=== PATIENT | male | born 1965 | race Caucasian/White ===

== ENCOUNTER 2019-11-22 12:17 | Emergency (ER) | payer BC ==
[2019-11-22 12:37] VITALS: BP 152/80; PULSE 88
--- NOTE | 2019-11-22 12:46 | EDM.PDOC ---
ED HPI GENERAL MEDICAL PROBLEM - General Chief Complaint: Lower Extremity Injury/Pain Stated Complaint: PAIN IN RT LEG Time Seen by Provider: 11/22/19 12:21 - History of Present Illness INITIAL COMMENTS - FREE TEXT/NARRATIVE: History of present illness: [] The patient has suffered with irritation in his legs for a month. 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 It is gradually gotten worse. The patient now has pain where he has excoriation along the lower part of the legs and ankles. The patient is not diabetic does not smoke and has no systemic signs of illness. The patient has persistent nasal congestion despite [id number] remedies after recent sinus x-rays as well. He was told he had no significant acute sinusitis. He has no fever. Review of systems: See above otherwise as per history of present illness and below otherwise all systems reviewed and negative. Past medical history: As per history of present illness and as reviewed below otherwise noncontributory. Surgical history: As per history of present illness and as reviewed below otherwise noncontributory. Social history: Patient does not smoke. No reported history of drug or alcohol abuse. Family history: As per history of present illness and as reviewed below otherwise noncontributory. Physical exam: Musculoskeletal there is a little bit of tenderness in the lower legs and ankles. Skin patient has excoriation and superficial layer erythema and eschar in the medial lower legs and ankles. Some crusting. HEENT: Atraumatic, normocephalic, pupils reactive, negative for conjunctival pallor or scleral icterus, mucous membranes moist, throat clear, neck supple, nontender, trachea midline. Lungs: Clear to auscultation, breath sounds equal bilaterally, chest nontender. Heart: S1S2, regular, negative for clicks, rubs, or JVD. Abdomen: Soft, nondistended, nontender. Negative for masses or hepatosplenomegaly. Negative for costovertebral tenderness. Pelvis: Stable nontender. Genitourinary: Deferred. Rectal: Deferred. Extremities: Atraumatic, negative for cords or calf pain. Neurovascular unremarkable. Neuro: Awake, alert, oriented. Cranial nerves II through XII unremarkable. Cerebellum unremarkable. Motor and sensory unremarkable throughout. Exam nonfocal. Diagnostics: [] Therapeutics: [] Impression: [] Plan: [] Definitive disposition and diagnosis as appropriate pending reevaluation and review of above. Bilateral Lower Leg Pain Score (Numeric/FACES): 5 - Related Data Allergies Allergy/AdvReac Type Severity Reaction Status Date / Time No Known Allergies Allergy Verified 11/22/19 12:29 Home Meds: Home Meds Fluticasone Propionate [Flonase] 16 gm NS BID #1 bottle 11/22/19 [Rx] Ketoconazole [Nizoral 2% Crm] 1 applic TOP BID #1 tube 11/22/19 [Rx] cephALEXin [Cephalexin] 500 mg PO BID #20 capsule 11/22/19 [Rx] Past Medical History HEENT History: Reports: None Cardiovascular History: Reports: None Respiratory History: Reports: None Gastrointestinal History: Reports: None Genitourinary History: Reports: None Musculoskeletal History: Reports: None Neurological History: Reports: None Psychiatric History: Reports: None Endocrine/Metabolic History: Reports: None Hematologic History: Reports: None Immunologic History: Reports: None Oncologic (Cancer) History: Reports: None Dermatologic History: Reports: None - Infectious Disease History Infectious Disease History: Reports: None - Past Surgical History Head Surgeries/Procedures: Reports: None GI Surgical History: Reports: Appendectomy Social & Family History - Family History Family Medical History: Noncontributory - Tobacco Use Smoking Status *Q: Never Smoker Second Hand Smoke Exposure: No - Caffeine Use Caffeine Use: Reports: Coffee - Recreational Drug Use Recreational Drug Use: No Review of Systems - Review of Systems Review Of Systems: See Below ED EXAM, GENERAL - Physical Exam Exam: See Below Course - Vital Signs Last Recorded V/S: Last Vital Signs Temp 97.3 F 11/22/19 12:29 Pulse 88 11/22/19 12:29 Resp 18 11/22/19 12:29 BP 152/80 H 11/22/19 12:29 Pulse Ox 96 11/22/19 12:29 Departure - Departure Time of Disposition: 12:47 Disposition: Home, Self-Care 01 Condition: Good Clinical Impression: Cellulitis - Discharge Information Prescriptions: cephALEXin [Cephalexin] 500 mg PO BID #20 capsule Fluticasone Propionate [Flonase] 16 gm NS BID #1 bottle Ketoconazole [Nizoral 2% Crm] 1 applic TOP BID #1 tube Referrals: Wes Hernandez DPM [Physician] - PCP,None [Primary Care Provider] - Forms: ED Department Discharge Additional Instructions: Keep the boots and socks off for 2 days until the infection starts to clear. If you do not get better at all then you need to see podiatry or primary care and follow-up. The following information is given to patients seen in the emergency department who are being discharged to home. This information is to outline your options for follow-up care. We provide all patients seen in our emergency department with a follow-up referral. The need for follow-up, as well as the timing and circumstances, are variable depending upon the specifics of your emergency department visit. If you don't have a primary care physician on staff, we will provide you with a referral. We always advise you to contact your personal physician following an emergency department visit to inform them of the circumstance of the visit and for follow-up with them and/or the need for any referrals to a consulting specialist. The emergency department will also refer you to a specialist when appropriate. This referral assures that you have the opportunity for follow-up care with a specialist. All of these measure are taken in an effort to provide you with optimal care, which includes your follow-up. Under all circumstances we always encourage you to contact your private physician who remains a resource for coordinating your care. When calling for follow-up care, please make the office aware that this follow-up is from your recent emergency room visit. If for any reason you are refused follow-up, please contact the [facility] Department at and asked to speak to the emergency department charge nurse. Sepsis Event Note - Evaluation Sepsis Screening Result: No Definite Risk - Focused Exam Vital Signs: Vital Signs Temp Pulse Resp BP Pulse Ox 11/22/19 12:29 97.3 F 88 18 152/80 H 96 Date Exam was Performed: 11/22/19 Time Exam was Performed: 12:41 - Assessment/Plan Assessment:: The patient has cellulitis possibly with superimposed monilial infection from the moistened lower extremities Plan: Plan is to treat with antibiotics and topical antifungal agents. He should keep the boots off and keep the legs dry for 2 days. Follow-up with podiatry or primary care if he is not better in 2 days.
== END 2019-11-22 13:01 | disposition home or self-care (01) ==
LOC: MW.ED 12:17
DX: L03.116 Cellulitis of left lower limb (principal); L03.115 Cellulitis of right lower limb
CPT/HCPCS: 99283